=== PATIENT | female | born 1960 | race Caucasian/White ===

== ENCOUNTER → 2017-12-27 | Outpatient (REF) | payer BC ==
[2017-12-27 12:43] LABS: FREE T4 1.05 NG/DL (0.76-1.46)
[2017-12-27 13:04] LABS: ESTIMATED AVERAGE GLUCOSE 123 MG/DL (60-110); HEMOGLOBIN A1c 5.9 %
== END ==
LOC: M LABDRAW1 11:57
DX: E06.3 Autoimmune thyroiditis (principal)
CPT/HCPCS: 84443

== ENCOUNTER → 2018-07-03 | Outpatient (CLI) | payer BC ==
[2018-07-03 18:11] LABS: ESTIMATED AVERAGE GLUCOSE 108 MG/DL (60-110); HEMOGLOBIN A1c 5.4 %
[2018-07-03 18:13] LABS: ANION GAP 10 MEQ/L (8-16); BLOOD UREA NITROGEN 15 MG/DL (7-18); CALCIUM LEVEL 9.1 MG/DL (8.5-10.1); CARBON DIOXIDE LEVEL 28 MEQ/L (21-32); CHLORIDE LEVEL 104 MEQ/L (98-107); CHOLESTEROL LEVEL 203 MG/DL (<200); CHOLESTEROL RISK RATIO 3.383 (<5); CREATININE FOR GFR 0.82 MG/DL (0.55-1.30); FREE T4 1.03 NG/DL (0.76-1.46); GLOMERULAR FILTRATION RATE > 60.0 (>51); GLUCOSE, FASTING 89 MG/DL (70-100); HDL CHOLESTEROL 60 MG/DL (>40); LDL CHOLESTEROL 119.2 MG/DL (<100); NON-HDL-C 143 MG/DL; POTASSIUM SERUM 4.3 MEQ/L (3.5-5.1); SODIUM LEVEL 142 MEQ/L (136-145); TRIGLYCERIDES LEVEL 119 MG/DL (<150)
== END ==
LOC: M WUC 11:57
DX: R73.02 Impaired glucose tolerance (oral) (principal); E06.3 Autoimmune thyroiditis
CPT/HCPCS: 84443

== ENCOUNTER → 2018-10-17 | Outpatient (CLI) | payer BC ==
--- NOTE | 2018-10-17 19:12 | REP ---
Clinical: Left lower quadrant pain. Technique: Single supine view of the abdomen and pelvis. Findings: Bowel gas pattern is nonspecific. No organomegaly. No obvious abnormal calcifications. Skeletal structures demonstrate age-related changes. Impression: Nonspecific abdominal radiograph. Electronically Signed by Jaun Peña MD 10/17/2018 07:04 P
[2018-10-17 20:03] LABS: BASO # 0.1 10^3/uL (0.0-0.2); EOS # 0.1 10^3/uL (0.0-0.50); HEMATOCRIT 42.4 % (36.0-47.0); HEMOGLOBIN 14.5 g/dl (12.0-15.5); LYMPH # 1.7 10^3/uL (1.5-4.5); LYMPH % 25.5 % (24.0-44.0); MEAN CORPUSCULAR HEMOGLOBIN 31.1 pg (27.0-33.0); MEAN CORPUSCULAR HGB CONC 34.2 g/dl (32.0-36.5); MONO # 0.7 10^3/uL (0.0-0.8); MONO % 9.6 % (0.0-5.0); NEUTROPHILS # 4.2 10^3/uL (1.8-7.7); NEUTROPHILS % 62.8 % (36.0-66.0); PLATELET COUNT, AUTOMATED 245 10^3/uL (150-450); RED BLOOD COUNT 4.66 10^6/uL (4.00-5.40); WHITE BLOOD COUNT 6.7 10^3/uL (4.0-10.0)
[2018-10-17 20:24] LABS: ALBUMIN 3.7 GM/DL (3.2-5.2); ALT/SGPT 44 U/L (12-78); AMYLASE 49 U/L (25-115); BILIRUBIN,TOTAL 0.4 MG/DL (0.2-1.0); BLOOD UREA NITROGEN 14 MG/DL (7-18); CALCIUM LEVEL 8.4 MG/DL (8.5-10.1); CARBON DIOXIDE LEVEL 29 MEQ/L (21-32); CHLORIDE LEVEL 106 MEQ/L (98-107); CREATININE FOR GFR 0.73 MG/DL (0.55-1.30); GLOMERULAR FILTRATION RATE > 60.0 (>51); GLUCOSE, FASTING 84 MG/DL (70-100); LIPASE 135 U/L (73-393); SODIUM LEVEL 142 MEQ/L (136-145); TOTAL PROTEIN 7.5 GM/DL (6.4-8.2)
[2018-10-18 08:25] LABS: HEMOGLOBIN A1c 6.1 %
== END ==
LOC: M WUC 18:07
PROVIDERS: ATTEND Physician Assistant
DX: R12 Heartburn (principal); R10.814 Left lower quadrant abdominal tenderness

== ENCOUNTER → 2018-12-12 | Outpatient (REF) | payer BC | LOC: M LAB REF 12:34 | PROVIDERS: ATTEND Physician Assistant | DX: N39.0 Urinary tract infection, site not specified (principal) ==

== ENCOUNTER → 2019-01-01 | Outpatient (REF) | payer BC ==
[2019-01-01 13:20] LABS: CHOLESTEROL RISK RATIO 2.983 (<5)
== END ==
LOC: M LABDRAW1 12:29
PROVIDERS: ATTEND Nurse Practitioner Family
DX: E78.00 Pure hypercholesterolemia, unspecified (principal)

== ENCOUNTER 2019-03-06 08:58 | Day surgery (SDC) | payer BC ==
[~2019-03-06] VITALS: Ht 165.1 cm; Wt 68.0 kg
[~2019-03-06 08:58] MED LIST: LIDOCAINE 2% INJ 100 MG/5 ML SDV (FOR ANES.) As Ordered ONE; OMEP-218 PO; PROPOFOL 200 MG/20 ML VIAL As Ordered ONE
--- NOTE | 2019-03-06 11:24 | ROOR ---
Patient Name: Susan Pablo Procedure Date: 03/06/2019 11:14 AM Date of : 1960 Age: 58 Room: [facility] Gender: Female Note Status: Finalized Procedure: Upper GI endoscopy Indications: Dyspepsia, Heartburn Providers: Abebe JAMES MD Referring MD: 1. No Referring Physician 1. No Referring Physician, Admin. Requesting Provider: Medicines: Monitored Anesthesia Care Complications: No immediate complications. Procedure: Pre-Anesthesia Assessment: - The heart rate, respiratory rate, oxygen saturations, blood pressure, adequacy of pulmonary ventilation, and response to care were monitored throughout the procedure. The Endoscope was introduced through the mouth, and advanced to the second part of duodenum. The upper GI endoscopy was accomplished without difficulty. The patient tolerated the procedure well. Findings: The Z-line was variable and was found 40 cm from the incisors. Non-severe esophagitis was found at the gastroesophageal junction. Biopsies were taken with a cold forceps for histology. The entire examined stomach was normal. The examined duodenum was normal. Impression: - Z-line variable, 40 cm from the incisors with mild esophagitis. Biopsied. - Normal stomach. - Normal examined duodenum. Recommendation: - Use Prilosec (omeprazole) 40 mg PO daily for 3 months. Abebe James MD Abebe JAMES MD 03/06/2019 11:23:29 AM Electronically signed by Abebe JAMES MD Number of Addenda: 0 Note Initiated On: 03/06/2019 11:14 AM Estimated Blood Loss: Estimated blood loss: none.
--- NOTE | 2019-03-06 11:36 | ROOR ---
Patient Name: Susan Pablo Procedure Date: 03/06/2019 11:14 AM Date of : 1960 Age: 58 Room: [facility] Gender: Female Note Status: Finalized Procedure: Colonoscopy Indications: Screening for colorectal malignant neoplasm, Incidental change in bowel habits noted Providers: Abebe JAMES MD Referring MD: 1. No Referring Physician 1. No Referring Physician, Admin. Requesting Provider: Medicines: Monitored Anesthesia Care Complications: No immediate complications. Procedure: Pre-Anesthesia Assessment: - The heart rate, respiratory rate, oxygen saturations, blood pressure, adequacy of pulmonary ventilation, and response to care were monitored throughout the procedure. The Colonoscope was introduced through the anus and advanced to 10 cm into the ileum. The colonoscopy was performed without difficulty. The patient tolerated the procedure well. The quality of the bowel preparation was good. Findings: The perianal and digital rectal examinations were normal. (Exam: Complete, Prep: Good or Excellent.) Small Internal Hemorrhoids. The entire examined colon appeared normal on direct and retroflexion views. Impression: - (Exam: Complete, Prep: Good or Excellent.) - Small Internal Hemorrhoids. - The entire colon is normal on direct and retroflexion views. - No specimens collected. Recommendation: - Repeat colonoscopy in 10 years for screening purposes. Abebe James MD Abebe JAMES MD 03/06/2019 11:35:53 AM Electronically signed by Abebe JAMES MD Number of Addenda: 0 Note Initiated On: 03/06/2019 11:14 AM Estimated Blood Loss: Estimated blood loss: none.
[2019-03-06 11:50] VITALS: BP 140/70
== END 2019-03-06 12:05 | disposition home or self-care (01) ==
LOC: M OPP 08:58
PROVIDERS: ATTEND Internal Medicine Gastroenterology
DX: K64.8 Other hemorrhoids (principal); K22.8 Other specified diseases of esophagus; K20.9 Esophagitis, unspecified; R10.13 Epigastric pain; R12 Heartburn; R19.4 Change in bowel habit; Z12.11 Encounter for screening for malignant neoplasm of colon

== ENCOUNTER → 2019-07-03 | Outpatient (CLI) | payer BC ==
[~2019-07-03] MED LIST changes: -LIDOCAINE 2% INJ 100 MG/5 ML SDV (FOR ANES.) As Ordered ONE; -PROPOFOL 200 MG/20 ML VIAL As Ordered ONE
[2019-07-03 12:29] LABS: BLOOD UREA NITROGEN 16 MG/DL (7-18); CALCIUM LEVEL 9.1 MG/DL (8.5-10.1); CARBON DIOXIDE LEVEL 29 MEQ/L (21-32); CHLORIDE LEVEL 105 MEQ/L (98-107); CHOLESTEROL LEVEL 169 MG/DL (<200); CHOLESTEROL RISK RATIO 3.188 (<5); CREATININE FOR GFR 0.81 MG/DL (0.55-1.30); FREE T4 1.02 NG/DL (0.76-1.46); GLOMERULAR FILTRATION RATE > 60.0 (>51); GLUCOSE, FASTING 87 MG/DL (70-100); HDL CHOLESTEROL 53 MG/DL (>40); LDL CHOLESTEROL 99 MG/DL (<100); NON-HDL-C 116 MG/DL; POTASSIUM SERUM 4.2 MEQ/L (3.5-5.1); SODIUM LEVEL 140 MEQ/L (136-145); TOTAL 25(OH) VITAMIN D 20.1 NG/ML (30.0-100.0); TRIGLYCERIDES LEVEL 86 MG/DL (<150)
== END ==
LOC: M WUC 08:34
PROVIDERS: ATTEND Nurse Practitioner Family
DX: E78.00 Pure hypercholesterolemia, unspecified (principal); E06.3 Autoimmune thyroiditis; R73.02 Impaired glucose tolerance (oral)

== ENCOUNTER → 2019-12-31 | Outpatient (CLI) | payer BC ==
[2019-12-31 12:07] LABS: BLOOD UREA NITROGEN 22 MG/DL (7-18); CARBON DIOXIDE LEVEL 31 MEQ/L (21-32); CHLORIDE LEVEL 107 MEQ/L (98-107); CREATININE FOR GFR 0.86 MG/DL (0.55-1.30); GLOMERULAR FILTRATION RATE > 60.0 (>51); GLUCOSE, FASTING 86 MG/DL (70-100); SODIUM LEVEL 140 MEQ/L (136-145)
[2019-12-31 12:20] LABS: TOTAL 25(OH) VITAMIN D 30.4 NG/ML (30.0-100.0)
== END ==
LOC: M WUC 08:39
PROVIDERS: ATTEND Nurse Practitioner Family
DX: E55.9 Vitamin D deficiency, unspecified (principal)

== ENCOUNTER → 2020-07-08 | Outpatient (CLI) | payer BC ==
[2020-07-08 15:42] LABS: ALT/SGPT 69 U/L (12-78); BILIRUBIN,TOTAL 0.5 MG/DL (0.2-1.0); BLOOD UREA NITROGEN 17 MG/DL (7-18); CALCIUM LEVEL 9.1 MG/DL (8.5-10.1); CARBON DIOXIDE LEVEL 28 MEQ/L (21-32); CHLORIDE LEVEL 107 MEQ/L (98-107); CHOLESTEROL LEVEL 185 MG/DL (<200); CHOLESTEROL RISK RATIO 2.983 (<5); CREATININE FOR GFR 0.74 MG/DL (0.55-1.30); FREE T4 1.07 NG/DL (0.76-1.46); GLOMERULAR FILTRATION RATE > 60.0 (>51); GLUCOSE, FASTING 79 MG/DL (70-100); HDL CHOLESTEROL 62 MG/DL (>40); LDL CHOLESTEROL 104 MG/DL (<100); NON-HDL-C 123 MG/DL; POTASSIUM SERUM 4.2 MEQ/L (3.5-5.1); SODIUM LEVEL 140 MEQ/L (136-145); TOTAL 25(OH) VITAMIN D 18.6 NG/ML (30.0-100.0); TOTAL PROTEIN 7.6 GM/DL (6.4-8.2); TRIGLYCERIDES LEVEL 94 MG/DL (<150)
== END ==
LOC: M WUC 08:42
PROVIDERS: ATTEND Internal Medicine Endocrinology, Diabetes & Metabolism
DX: E78.00 Pure hypercholesterolemia, unspecified (principal); E06.3 Autoimmune thyroiditis; E55.9 Vitamin D deficiency, unspecified

== ENCOUNTER → 2020-12-30 | Outpatient (CLI) | payer BC ==
[2020-12-30 12:33] LABS: BLOOD UREA NITROGEN 16 MG/DL (7-18); CARBON DIOXIDE LEVEL 29 MEQ/L (21-32); CHLORIDE LEVEL 105 MEQ/L (98-107); CREATININE FOR GFR 0.92 MG/DL (0.55-1.30); GLOMERULAR FILTRATION RATE > 60.0 (>51); GLUCOSE, FASTING 96 MG/DL (70-100); POTASSIUM SERUM 4.1 MEQ/L (3.5-5.1); SODIUM LEVEL 139 MEQ/L (136-145)
[2020-12-30 12:34] LABS: ALBUMIN 3.9 GM/DL (3.2-5.2); ALT/SGPT 56 U/L (12-78); BILIRUBIN,TOTAL 0.6 MG/DL (0.2-1.0); CALCIUM LEVEL 9.5 MG/DL (8.5-10.1); CHOLESTEROL LEVEL 196 MG/DL (<200); CHOLESTEROL RISK RATIO 3.322 (<5); HDL CHOLESTEROL 59 MG/DL (>40); LDL CHOLESTEROL 111 MG/DL (<100); NON-HDL-C 137 MG/DL; TOTAL PROTEIN 7.8 GM/DL (6.4-8.2); TRIGLYCERIDES LEVEL 131 MG/DL (<150)
== END ==
LOC: M PLALAB 08:04
PROVIDERS: ATTEND Nurse Practitioner Adult Health
DX: Z00.00 Encounter for general adult medical examination without abnormal findings (principal); Z13.220 Encounter for screening for lipoid disorders

== ENCOUNTER → 2021-07-13 | Outpatient (CLI) | payer BC ==
[2021-07-13 10:59] LABS: FREE T4 1.01 NG/DL (0.76-1.46); THYROID STIMULATING HORMONE 4.04 uIU/ML (0.358-3.740)
[2021-07-13 11:02] LABS: TOTAL 25(OH) VITAMIN D 24.6 NG/ML (30.0-100.0)
== END ==
LOC: M PLALAB 08:15
PROVIDERS: ATTEND Nurse Practitioner Family
DX: E06.3 Autoimmune thyroiditis (principal)

== ENCOUNTER → 2022-01-04 | Outpatient (CLI) | payer BC ==
[~2022-01-04] MED LIST changes: +OMEP-173 PO; -OMEP-218 PO
== END ==
LOC: M PLALAB 08:40
PROVIDERS: ATTEND Nurse Practitioner Family
DX: E55.9 Vitamin D deficiency, unspecified (principal)

== ENCOUNTER → 2022-07-05 | Outpatient (CLI) | payer BC ==
[2022-07-05 11:40] LABS: ALBUMIN 3.7 GM/DL (3.2-5.2); ALT/SGPT 65 U/L (12-78); BILIRUBIN,TOTAL 0.5 MG/DL (0.2-1.0); BLOOD UREA NITROGEN 15 MG/DL (7-18); CALCIUM LEVEL 8.9 MG/DL (8.8-10.2); CARBON DIOXIDE LEVEL 28 MEQ/L (21-32); CHLORIDE LEVEL 107 MEQ/L (98-107); CHOLESTEROL LEVEL 199 MG/DL (<200); CHOLESTEROL RISK RATIO 3.109 (<5); CREATININE FOR GFR 0.85 MG/DL (0.55-1.30); FREE T4 1.08 NG/DL (0.76-1.46); GLOMERULAR FILTRATION RATE > 60.0 (>45); GLUCOSE, FASTING 90 MG/DL (70-100); HDL CHOLESTEROL 64 MG/DL (>40); LDL CHOLESTEROL 115 MG/DL (<100); NON-HDL-C 135 MG/DL; SODIUM LEVEL 140 MEQ/L (136-145); TOTAL PROTEIN 7.5 GM/DL (6.4-8.2); TRIGLYCERIDES LEVEL 102 MG/DL (<150)
[2022-07-05 13:13] LABS: TOTAL 25(OH) VITAMIN D 27.7 NG/ML (30.0-100.0)
== END ==
LOC: M PLALAB 08:54
PROVIDERS: ATTEND Nurse Practitioner Family
DX: E78.00 Pure hypercholesterolemia, unspecified (principal)

== ENCOUNTER → 2022-12-28 | Outpatient (CLI) | payer BC ==
[2022-12-28 11:18] LABS: THYROID STIMULATING HORMONE 3.754 uIU/ML (0.55-4.78)
[2022-12-28 11:19] LABS: ALBUMIN 3.8 G/DL (3.2-5.2); ALKALINE PHOSPHATASE 82 U/L (46-116); ALT/SGPT 29 U/L (7.0-40); AST/SGOT 19 U/L (<34); BILIRUBIN,TOTAL 0.5 MG/DL (0.3-1.2); BLOOD UREA NITROGEN 26 MG/DL (9-23); CALCIUM LEVEL 8.9 MG/DL (8.3-10.6); CARBON DIOXIDE LEVEL 29 MMOL/L (20-31); CHLORIDE LEVEL 104 MMOL/L (98-107); CHOLESTEROL LEVEL 192 MG/DL (<200); CHOLESTEROL RISK RATIO 3.87 (<5); CREATININE FOR GFR 0.77 MG/DL (0.55-1.30); GLOMERULAR FILTRATION RATE > 60.0 (>45); GLUCOSE, FASTING 102 MG/DL (74-106); HDL CHOLESTEROL 49.6 MG/DL (>40); NON-HDL-C 142 MG/DL; POTASSIUM SERUM 4.3 MMOL/L (3.5-5.1); SODIUM LEVEL 140 MMOL/L (136-145); TOTAL PROTEIN 7.1 G/DL (5.7-8.2); TRIGLYCERIDES LEVEL 117 MG/DL (<150)
[2022-12-28 11:21] LABS: FREE T4 1.07 NG/DL (0.89-1.76)
== END ==
LOC: M PLALAB 08:31
PROVIDERS: ATTEND Nurse Practitioner Family
DX: E78.00 Pure hypercholesterolemia, unspecified (principal); E55.9 Vitamin D deficiency, unspecified; E06.3 Autoimmune thyroiditis

== ENCOUNTER → 2023-02-27 | Outpatient (REF) | payer BC | LOC: M SFHCWAGY 13:15 | PROVIDERS: ATTEND Nurse Practitioner Family | DX: Z12.4 Encounter for screening for malignant neoplasm of cervix (principal); Z01.419 Encounter for gynecological examination (general) (routine) without abnormal findings; Z77.9 Other contact with and (suspected) exposures hazardous to health ==

== ENCOUNTER → 2023-06-28 | Outpatient (CLI) | payer BC ==
[2023-06-28 14:27] LABS: CREATININE, URINE 75.8 MG/DL; THYROID STIMULATING HORMONE 3.782 uIU/ML (0.55-4.78)
[2023-06-28 14:29] LABS: FREE T4 1.19 NG/DL (0.89-1.76); MAU/CREAT RATIO 26.3 MCG/MG (0.0-30.0)
[2023-06-28 14:30] LABS: ALKALINE PHOSPHATASE 87 U/L (46-116); ALT/SGPT 27 U/L (7.0-40); AST/SGOT 13 U/L (<34); BILIRUBIN,TOTAL 0.6 MG/DL (0.3-1.2); BLOOD UREA NITROGEN 17 MG/DL (9-23); CALCIUM LEVEL 9.4 MG/DL (8.3-10.6); CARBON DIOXIDE LEVEL 26 MMOL/L (20-31); CHLORIDE LEVEL 106 MMOL/L (98-107); CHOLESTEROL LEVEL 179 MG/DL (<200); CHOLESTEROL RISK RATIO 3.03 (<5); CREATININE FOR GFR 0.75 MG/DL (0.55-1.30); GLOMERULAR FILTRATION RATE > 60.0 (>45); GLUCOSE, FASTING 89 MG/DL (74-106); HDL CHOLESTEROL 58.9 MG/DL (>40); LDL CHOLESTEROL 98.1 MG/DL (<100); NON-HDL-C 120.1 MG/DL; POTASSIUM SERUM 4.4 MMOL/L (3.5-5.1); SODIUM LEVEL 141 MMOL/L (136-145); TOTAL PROTEIN 7.3 G/DL (5.7-8.2); TRIGLYCERIDES LEVEL 110 MG/DL (<150)
== END ==
LOC: M PLALAB 11:45
PROVIDERS: ATTEND Nurse Practitioner Family
DX: E78.00 Pure hypercholesterolemia, unspecified (principal)

== ENCOUNTER → 2024-02-28 | Outpatient (CLI) | payer BC ==
[2024-02-28 13:09] LABS: CREATININE, URINE 168.3 MG/DL; MAU/CREAT RATIO 3.5 MCG/MG (0.0-30.0)
[2024-02-28 13:12] LABS: ALBUMIN 3.6 G/DL (3.2-5.2); ALKALINE PHOSPHATASE 84 U/L (46-116); ALT/SGPT 26 U/L (7.0-40); AST/SGOT 16 U/L (<34); BILIRUBIN,TOTAL 0.5 MG/DL (0.3-1.2); BLOOD UREA NITROGEN 24 MG/DL (9-23); CALCIUM LEVEL 9.2 MG/DL (8.3-10.6); CARBON DIOXIDE LEVEL 27 MMOL/L (20-31); CHLORIDE LEVEL 110 MMOL/L (98-107); CHOLESTEROL LEVEL 186 MG/DL (<200); CHOLESTEROL RISK RATIO 3.36 (<5); CREATININE FOR GFR 0.83 MG/DL (0.55-1.30); GLOMERULAR FILTRATION RATE > 60.0 (>45); GLUCOSE, FASTING 95 MG/DL (74-106); HDL CHOLESTEROL 55.2 MG/DL (>40); LDL CHOLESTEROL 116.4 MG/DL (<100); NON-HDL-C 130.8 MG/DL; POTASSIUM SERUM 4.4 MMOL/L (3.5-5.1); SODIUM LEVEL 144 MMOL/L (136-145); THYROID STIMULATING HORMONE 3.321 uIU/ML (0.55-4.78); TOTAL 25(OH) VITAMIN D 31.5 NG/ML (20.0-100.0); TOTAL PROTEIN 7.2 G/DL (5.7-8.2); TRIGLYCERIDES LEVEL 72 MG/DL (<150)
[2024-02-28 13:14] LABS: FREE T4 1.15 NG/DL (0.89-1.76)
== END ==
LOC: M PLALAB 09:43
PROVIDERS: ATTEND Nurse Practitioner Family
DX: E78.00 Pure hypercholesterolemia, unspecified (principal)

== ENCOUNTER → 2024-03-09 | Outpatient (REF) | payer BC | LOC: M SFHCWAGY 17:17 | PROVIDERS: ATTEND Nurse Practitioner Family | DX: Z12.4 Encounter for screening for malignant neoplasm of cervix (principal) ==

== ENCOUNTER → 2024-03-25 | Outpatient (CLI) | payer BC | LOC: M PLALAB 08:41 | PROVIDERS: ATTEND Physician Assistant Medical | DX: R19.7 Diarrhea, unspecified (principal) ==

== ENCOUNTER 2024-07-24 09:18 | Day surgery (SDC) | payer BC ==
[~2024-07-24] VITALS: Ht 170.2 cm; Wt 68.4 kg
[2024-07-24] MEDS: NS 1,000 ML IV ONE (09:30)
[2024-07-24] MEDS ORDERED: fentaNYL 100 MCG/2 ML INJECTION As Ordered ONE (11:16)
[2024-07-24] MEDS ORDERED: propofoL 500 MG/50 ML VIAL As Ordered ONE (11:35)
[2024-07-24] MEDS ORDERED: LIDOCAINE 2% 100MG/5ML SDV (FOR ANES.) As Ordered ONE (11:35)
[2024-07-24 12:07] VITALS: BP 132/75; O2SAT 98
== END 2024-07-24 12:21 | disposition home or self-care (01) ==
LOC: M OPP 09:18
PROVIDERS: ATTEND Internal Medicine Gastroenterology
DX: K52.89 Other specified noninfective gastroenteritis and colitis (principal); R19.4 Change in bowel habit; R19.7 Diarrhea, unspecified; K22.89 Other specified disease of esophagus; K22.70 Barrett's esophagus without dysplasia; K31.7 Polyp of stomach and duodenum; E03.9 Hypothyroidism, unspecified; R12 Heartburn; Z88.2 Allergy status to sulfonamides
CPT/HCPCS: 43239; 45380; 88305; J3010

== ENCOUNTER → 2025-03-11 | Outpatient (CLI) | payer OTHER ==
[2025-03-11 14:46] LABS: HEMATOCRIT 47.3 % (36.0-47.0); HEMOGLOBIN 15.8 g/dl (12.0-15.5); MEAN CORPUSCULAR HEMOGLOBIN 30.7 pg (27.0-33.0); MEAN CORPUSCULAR HGB CONC 33.4 g/dl (32.0-36.5); PLATELET COUNT, AUTOMATED 237 10^3/uL (150-450); RED BLOOD COUNT 5.14 10^6/uL (4.00-5.40); WHITE BLOOD COUNT 6.8 10^3/uL (4.0-10.0)
[2025-03-11 15:15] LABS: ALBUMIN 3.9 G/DL (3.2-5.2); BILIRUBIN,TOTAL 0.6 MG/DL (0.3-1.2); CALCIUM LEVEL 9.7 MG/DL (8.3-10.6); CHOLESTEROL RISK RATIO 3.07 (<5); CREATININE FOR GFR 0.79 MG/DL (0.55-1.30); GLOMERULAR FILTRATION RATE 84.5 (>45); HDL CHOLESTEROL 59.1 MG/DL (>40); LDL CHOLESTEROL 101.9 MG/DL (<100); NON-HDL-C 122.9 MG/DL; POTASSIUM SERUM 4.3 MMOL/L (3.5-5.1); TOTAL PROTEIN 7.2 G/DL (5.7-8.2)
[2025-03-11 15:17] LABS: FREE T4 1.26 NG/DL (0.89-1.76)
[2025-03-11 15:18] LABS: THYROID STIMULATING HORMONE 2.721 uIU/ML (0.55-4.78)
[2025-03-11 15:30] LABS: HEMOGLOBIN A1c 5.7 % (4.0-6.0)
== END ==
LOC: M PLALAB 09:45
PROVIDERS: ATTEND Nurse Practitioner Adult Health
DX: Z00.00 Encounter for general adult medical examination without abnormal findings (principal); E55.9 Vitamin D deficiency, unspecified; E74.39 Other disorders of intestinal carbohydrate absorption

== ENCOUNTER → 2025-05-12 | Outpatient (CLI) | payer OTHER | LOC: M RAD 13:29 | PROVIDERS: ATTEND Nurse Practitioner Family | DX: E06.3 Autoimmune thyroiditis (principal) ==

== ENCOUNTER → 2025-08-14 | Outpatient (REF) | payer OTHER | LOC: M LAB REF 18:54 | PROVIDERS: ATTEND Student in an Organized Health Care Education/Training Program | DX: R30.0 Dysuria (principal) ==